=== PATIENT | male | born 1960 | race Two or more races ===

== ENCOUNTER 2023-03-15 20:55 | Emergency (ER) | payer SELFPAY ==
[~2023-03-15] VITALS: Ht 177.8 cm; Wt 82.0 kg
[2023-03-15 21:53] LABS: *AMPHETAMINES SCREEN URINE NEGATIVE (NEGATIVE); *BARBITURATES SCREEN URINE NEGATIVE (NEGATIVE); *BENZODIAZEPINES SCREEN URINE NEGATIVE (NEGATIVE); *COCAINE SCREEN URINE NEGATIVE (NEGATIVE); CANNABINOID URINE SCREEN NEGATIVE (NEGATIVE); METHADONE URINE SCREEN NEGATIVE (NEGATIVE); OPIATES URINE SCREEN NEGATIVE (NEGATIVE); PHENCYCLIDINE URINE SCREEN NEGATIVE (NEGATIVE)
[2023-03-15 22:05] LABS: BASOPHILS % 0.7 % (0.0-2.0); EOSINOPHILS % 2.1 % (0.0-5.0); HEMATOCRIT. 45.9 % (42.0-52.0); HEMOGLOBIN. 15.6 g/dL (14.0-18.0); LYMPHOCYTES % 42.8 % (20.0-50.0); MEAN CORPUSCULAR HEMOGLOBIN 31.5 pg (28.0-32.0); MEAN CORPUSCULAR VOLUME 92.6 fL (80.0-94.0); MEAN PLATELET VOLUME 6.5 fl (7.4-10.4); MONOCYTES % 7.4 % (2.0-8.0); PLATELET 347 x1000/uL (130-400); RED BLOOD CELL COUNT 4.96 mill/uL (4.7-6.1)
[2023-03-15 22:22] LABS: CHLORIDE 105 mEq/L (98-107)
[2023-03-15 22:31] LABS: ETHANOL BLOOD 272 mg/dL
[2023-03-15 23:50] VITALS: BP 125/80
== END 2023-03-15 23:57 | disposition home or self-care (01) ==
LOC: ER 20:55
DX: T51.0X1A Toxic effect of ethanol, accidental (unintentional), initial encounter (principal); X58.XXXA Exposure to other specified factors, initial encounter; Z86.73 Personal history of transient ischemic attack (TIA), and cerebral infarction without residual deficits; I10 Essential (primary) hypertension
CPT/HCPCS: 36415; 80053; 80305; 80320; 85025; 93005; 99284; Z7610; G0480

== ENCOUNTER 2023-05-17 23:34 | Emergency (ER) | payer OTHER ==
[2023-05-18 02:56] LABS: BASOPHILS % 1.2 % (0.0-2.0); EOSINOPHILS % 2.2 % (0.0-5.0); HEMOGLOBIN. 15.6 g/dL (14.0-18.0); LYMPHOCYTES % 44.8 % (20.0-50.0); MEAN CORPUSCULAR HEMOGLOBIN 31.4 pg (28.0-32.0); MEAN CORPUSCULAR HGB CONC 34.7 g/dL (31.0-37.0); MEAN CORPUSCULAR VOLUME 90.7 fL (80.0-94.0); MEAN PLATELET VOLUME 6.4 fl (7.4-10.4); MONOCYTES % 7.3 % (2.0-8.0); NEUTROPHILS % 44.5 % (40.0-76.0); PLATELET 425 x1000/uL (130-400); RED BLOOD CELL COUNT 4.96 mill/uL (4.7-6.1); RED CELL DISTRIBUTION WIDTH 15.8 % (11.6-14.6); WHITE BLOOD COUNT 8.3 x1000/uL (4.5-11.0)
[2023-05-18 03:09] LABS: *AMPHETAMINES SCREEN URINE NEGATIVE (NEGATIVE); *BARBITURATES SCREEN URINE NEGATIVE (NEGATIVE); *BENZODIAZEPINES SCREEN URINE NEGATIVE (NEGATIVE); *COCAINE SCREEN URINE NEGATIVE (NEGATIVE); CANNABINOID URINE SCREEN NEGATIVE (NEGATIVE); ECSTASY MDMA SCREEN URINE NEGATIVE (NEGATIVE); METHADONE URINE SCREEN NEGATIVE (NEGATIVE); OPIATES URINE SCREEN PRESUMTIVE POSITIVE (NEGATIVE); PHENCYCLIDINE URINE SCREEN NEGATIVE (NEGATIVE)
[2023-05-18 03:15] LABS: CHLORIDE 103 mEq/L (98-107); INDEX HEMOLYSI 1 (1-3); INDEX ICTERIC 1 (1-4); INDEX LIPEMIC 1 (1-3); POTASSIUM 4.1 mEq/L (3.5-5.1); SODIUM 134 mEq/L (136-145)
[2023-05-18 03:23] LABS: ALBUMIN 3.4 g/dL (3.4-5.0); BILIRUBIN TOTAL 0.2 mg/dL (0.1-1.0); CARBON DIOXIDE 23 mEq/L (21-32); CREATININE 0.8 mg/dL (0.6-1.3); GLUCOSE 108 mg/dL (70-105); PROTEIN TOTAL 8.3 g/dL (6.0-8.3); UREA NITROGEN BLOOD 5 mg/dL (7-21)
[2023-05-18 03:24] LABS: ACETAMINOPHEN <2 ug/mL ug/mL (10-30); ALANINE AMINOTRANSFERASE 36 IU/L (13-61); ASPARTATE AMINOTRANSFERASE 33 IU/L (15-37); ETHANOL BLOOD 249 mg/dL (-10)
[2023-05-18] MEDS: TAMSULOSIN HCL 0.4MG SR CAPSULE PO SCH ×2 (07:00→09:00)
[2023-05-18] MEDS: SERTRALINE HCL 50MG TABLET PO SCH ×3 (07:00→17:00)
[2023-05-18] MEDS: LISINOPRIL 10MG TABLET PO SCH ×2 (07:00→09:00)
[2023-05-18] MEDS: HYDROCHLOROTHIAZIDE 12.5MG CAPSULE PO SCH ×2 (07:00→09:00)
[2023-05-18] MEDS: TRAZODONE HCL 50MG TABLET PO SCH (21:55)
[2023-05-19] MEDS: SERTRALINE HCL 50MG TABLET PO SCH ×2 (09:00→17:00)
[2023-05-19] MEDS: LISINOPRIL 10MG TABLET PO SCH (09:00)
[2023-05-19] MEDS: TAMSULOSIN HCL 0.4MG SR CAPSULE PO SCH (09:00)
[2023-05-19] MEDS: HYDROCHLOROTHIAZIDE 12.5MG CAPSULE PO SCH (12:59)
[2023-05-19] MEDS: TRAZODONE HCL 50MG TABLET PO SCH (21:55)
[2023-05-19] MEDS ORDERED: IBUPROFEN 600MG TABLET PO ONE (22:15)
[2023-05-20] MEDS: HYDROCHLOROTHIAZIDE 12.5MG CAPSULE PO SCH (09:00)
[2023-05-20] MEDS: SERTRALINE HCL 50MG TABLET PO SCH ×2 (09:00→17:49)
[2023-05-20] MEDS: TAMSULOSIN HCL 0.4MG SR CAPSULE PO SCH (09:00)
[2023-05-20] MEDS: LISINOPRIL 10MG TABLET PO SCH (09:00)
[2023-05-20] MEDS: TRAZODONE HCL 50MG TABLET PO SCH (21:30)
[2023-05-21 06:46] VITALS: BP 142/76; PULSE 66; RESP 18; TEMP 98.4
== END 2023-05-21 09:20 | disposition home or self-care (01) ==
LOC: ER 23:34
DX: R45.851 Suicidal ideations (principal); I10 Essential (primary) hypertension; R51.9 Headache, unspecified; Z20.822 Contact with and (suspected) exposure to COVID-19; Z86.73 Personal history of transient ischemic attack (TIA), and cerebral infarction without residual deficits
CPT/HCPCS: 80053; 80305; 80307; 80329; 80320; 80162; 85025; 36415; 93005; 99285; 87426; 70450; C9803; G0480

== ENCOUNTER 2023-08-14 03:02 | Emergency (ER) | payer OTHER ==
[~2023-08-14] VITALS: Ht 172.7 cm; Wt 87.8 kg
[2023-08-14 03:05] VITALS: O2SAT 99
[2023-08-14] MEDS ORDERED: ASPIRIN 81MG TABLET PO ONE (03:15)
[2023-08-14 03:26] LABS: BASOPHILS % 0.9 % (0.0-2.0); EOSINOPHILS % 2.1 % (0.0-5.0); HEMATOCRIT. 43.7 % (42.0-52.0); LYMPHOCYTES % 49.4 % (20.0-50.0); MEAN CORPUSCULAR HEMOGLOBIN 31.5 pg (28.0-32.0); MEAN CORPUSCULAR HGB CONC 34.4 g/dL (31.0-37.0); MEAN CORPUSCULAR VOLUME 91.6 fL (80.0-94.0); MEAN PLATELET VOLUME 7.1 fl (7.4-10.4); MONOCYTES % 8.4 % (2.0-8.0); NEUTROPHILS % 39.2 % (40.0-76.0); PLATELET 363 x1000/uL (130-400); RED BLOOD CELL COUNT 4.77 mill/uL (4.7-6.1); WHITE BLOOD COUNT 10.3 x1000/uL (4.5-11.0)
[2023-08-14 03:30] LABS: CHLORIDE 104 mEq/L (98-107); INDEX HEMOLYSI 1 (1-3); INDEX ICTERIC 1 (1-4); INDEX LIPEMIC 1 (1-3); POTASSIUM 3.2 mEq/L (3.5-5.1); SODIUM 138 mEq/L (136-145)
[2023-08-14 03:46] LABS: ALANINE AMINOTRANSFERASE 21 IU/L (13-61); ASPARTATE AMINOTRANSFERASE 18 IU/L (15-37); BILIRUBIN TOTAL 0.3 mg/dL (0.1-1.0); CALCIUM 8.7 mg/dL (8.5-10.1); CARBON DIOXIDE 26 mEq/L (21-32); CREATININE 1.1 mg/dL (0.6-1.3); ETHANOL BLOOD < 10 mg/dL (<10); GLUCOSE 119 mg/dL (70-105); PROTEIN TOTAL 7.3 g/dL (6.0-8.3); TROPONIN I HIGH SENSITIVITY 31 ng/L (<78); UREA NITROGEN BLOOD 9 mg/dL (7-21)
[2023-08-14] MEDS ORDERED: ONDANSETRON HCL 4MG/2ML INJ IV NR (04:00)
[2023-08-14] MEDS ORDERED: MORPHINE SULFATE 4 MG/ML CPJ (NOT FOR IM USE) IV NR (04:45)
[2023-08-14 05:14] LABS: CLARITY URINE CLEAR (CLEAR); COLOR URINE YELLOW (YELLOW); GLUCOSE URINE NEGATIVE (NEGATIVE); KETONES URINE NEGATIVE (NEGATIVE); LEUKOCYTE ESTERASE URINE TRACE (NEGATIVE); NITRITE URINE POSITIVE (NEGATIVE); OCCULT BLOOD URINE 1+ (NEGATIVE); PROTEIN URINE NEGATIVE (NEGATIVE); SPECIFIC GRAVITY URINE 1.062 (1.005-1.030)
[2023-08-14 05:27] LABS: *AMPHETAMINES SCREEN URINE NEGATIVE (NEGATIVE); *BARBITURATES SCREEN URINE NEGATIVE (NEGATIVE); *BENZODIAZEPINES SCREEN URINE NEGATIVE (NEGATIVE); *COCAINE SCREEN URINE NEGATIVE (NEGATIVE); CANNABINOID URINE SCREEN NEGATIVE (NEGATIVE); ECSTASY MDMA SCREEN URINE NEGATIVE (NEGATIVE); OPIATES URINE SCREEN NEGATIVE (NEGATIVE); PHENCYCLIDINE URINE SCREEN NEGATIVE (NEGATIVE)
[2023-08-14] MEDS ORDERED: ASPIRIN 300MG SUPP PR ONE (06:15)
[2023-08-14 06:38] VITALS: BP 133/73; PULSE 60; RESP 14; TEMP 98
[2023-08-14 07:32] LABS: SQUAMOUS EPITHELIAL CELL URINE FEW /lpf (RARE/1+)
[2023-08-14 07:38] LABS: BACTERIA URINE 3+; RBC URINE 0-2 /hpf (0-2)
== END 2023-08-14 06:47 | disposition short-term general hospital (02) ==
LOC: ER 03:05
DX: I63.9 Cerebral infarction, unspecified (principal); R07.89 Other chest pain; R41.82 Altered mental status, unspecified; I48.91 Unspecified atrial fibrillation; I49.9 Cardiac arrhythmia, unspecified; Z86.73 Personal history of transient ischemic attack (TIA), and cerebral infarction without residual deficits; Z20.822 Contact with and (suspected) exposure to COVID-19
CPT/HCPCS: 80053; 80305; 81003; 80320; 82962; 85025; 84484; 36415; 71045; 70496; 70450; 96374; 96375; 99285; 87426; Q9967; Z7610 ×2; J2405; J2270; C9803; G0480

== ENCOUNTER 2025-01-24 18:26 | Inpatient (IN) | payer OTHER ==
[~2025-01-24] VITALS: Ht 182.9 cm; Wt 89.4 kg
[2025-01-24] MEDS: IOHEXOL-350 100 ML BOTTLE ONE ×2 (20:14→20:15)
[2025-01-24 20:25] LABS: CLARITY URINE CLEAR (CLEAR); COLOR URINE YELLOW (YELLOW); GLUCOSE URINE NEGATIVE (NEGATIVE); KETONES URINE NEGATIVE (NEGATIVE); LEUKOCYTE ESTERASE URINE NEGATIVE (NEGATIVE); NITRITE URINE NEGATIVE (NEGATIVE); OCCULT BLOOD URINE 2+ (NEGATIVE); PROTEIN URINE NEGATIVE (NEGATIVE); SPECIFIC GRAVITY URINE 1.091 (1.005-1.030)
[2025-01-24 20:35] LABS: BASOPHILS % 1.2 % (0.0-2.0); EOSINOPHILS % 2.2 % (0.0-5.0); HEMATOCRIT. 43.9 % (42.0-52.0); HEMOGLOBIN. 14.4 g/dL (14.0-18.0); LYMPHOCYTES % 39.3 % (20.0-50.0); MEAN CORPUSCULAR HEMOGLOBIN 29.2 pg (28.0-32.0); MEAN CORPUSCULAR HGB CONC 32.8 g/dL (31.0-37.0); MEAN CORPUSCULAR VOLUME 89.1 fL (80.0-94.0); MEAN PLATELET VOLUME 7.3 fl (7.4-10.4); MONOCYTES % 10.5 % (2.0-8.0); NEUTROPHILS % 46.8 % (40.0-76.0); PLATELET 255 x1000/uL (130-400); RED BLOOD CELL COUNT 4.93 mill/uL (4.7-6.1); RED CELL DISTRIBUTION WIDTH 16.2 % (11.6-14.6)
[2025-01-24 20:38] LABS: *AMPHETAMINES SCREEN URINE NEGATIVE (NEGATIVE); *BARBITURATES SCREEN URINE NEGATIVE (NEGATIVE); *BENZODIAZEPINES SCREEN URINE NEGATIVE (NEGATIVE); *COCAINE SCREEN URINE NEGATIVE (NEGATIVE)
[2025-01-24 20:39] LABS: CANNABINOID URINE SCREEN NEGATIVE (NEGATIVE); ECSTASY MDMA SCREEN URINE NEGATIVE (NEGATIVE); METHADONE URINE SCREEN NEGATIVE (NEGATIVE); OPIATES URINE SCREEN NEGATIVE (NEGATIVE); PHENCYCLIDINE URINE SCREEN NEGATIVE (NEGATIVE)
[2025-01-24 20:43] LABS: CHLORIDE 103 mEq/L (98-107); SODIUM 141 mEq/L (136-145)
[2025-01-24 20:44] LABS: CALCIUM 9.2 mg/dL (8.7-10.4); CARBON DIOXIDE 29 mEq/L (21-32)
[2025-01-24 20:45] LABS: PROTHROMBIN TIME 11.1 sec (9.6-11.0)
[2025-01-24 20:49] LABS: CREATININE 1.2 mg/dL (0.6-1.3); GLUCOSE 85 mg/dL (70-105); TROPONIN I HIGH SENSITIVITY 33 ng/L (3.0-53); UREA NITROGEN BLOOD 9 mg/dL (9-23)
[2025-01-24 20:50] LABS: ETHANOL BLOOD < 10 mg/dL (<10)
[2025-01-24 21:02] LABS: BACTERIA URINE NONE SEEN; SQUAMOUS EPITHELIAL CELL URINE RARE /lpf (RARE/1+); WBC URINE 0-2 /hpf (0-2)
[2025-01-24 21:16] LABS: TROPONIN I HIGH SENSITIVITY 34 ng/L (3.0-53)
[2025-01-24] MEDS: ASPIRIN 325MG EC TABLET PO NR (21:22)
[2025-01-24] MEDS: MORPHINE SULFATE 4 MG/ML INJ (FOR IV/IM USE) IV NR (21:33)
[2025-01-24] MEDS ORDERED: ACETAMINOPHEN 325MG TABLET PO PRN ×2 (23:45)
[2025-01-24] MEDS ORDERED: ONDANSETRON HCL 4MG/2ML INJ IV PRN (23:45)
[2025-01-24] MEDS ORDERED: GUAIFENESIN 200MG/10ML SUGAR FREE UDC PO PRN (23:45)
[2025-01-24] MEDS ORDERED: DOCUSATE SODIUM 100MG CAPSULE PO PRN (23:45)
[2025-01-24] MEDS ORDERED: DIPHENHYDRAMINE 50MG/ML VIAL IV PRN (23:45)
[2025-01-24] MEDS ORDERED: MAGNESIUM/ALUMINUM HYDROXIDE/SIMETHICONE 30ML UDC PO PRN (23:45)
[2025-01-24] MEDS ORDERED: IPRATROPIUM/ALBUTEROL 0.5-3(2.5)MG/3ML NEB HHN PRN (23:45)
[2025-01-24] MEDS ORDERED: KETOROLAC 15MG/ML VIAL IV PRN (23:45)
[2025-01-25] VITALS (7 sets, daily range): BP systolic 130–200; BP diastolic 57–102; PULSE 54–70; RESP 18–22; TEMP 35.8–36.9; O2SAT 97–100
[2025-01-25] MEDS: HYDRALAZINE 20MG/ML VIAL IV PRN (00:12)
[2025-01-25] MEDS: ATORVASTATIN CALCIUM 40MG TABLET PO STA (01:10)
[2025-01-25] MEDS: CLOPIDOGREL 75MG TABLET PO SCH (01:10)
[2025-01-25] MEDS ORDERED: HYDRALAZINE 20MG/ML VIAL IV PRN (06:30)
[2025-01-25 08:17] LABS: CARBON DIOXIDE 25 mEq/L (21-32); CHLORIDE 108 mEq/L (98-107); POTASSIUM 4.1 mEq/L (3.5-5.1); SODIUM 141 mEq/L (136-145)
[2025-01-25 08:18] LABS: CALCIUM 9.7 mg/dL (8.7-10.4)
[2025-01-25 08:22] LABS: CREATININE 0.9 mg/dL (0.6-1.3); GLUCOSE 120 mg/dL (70-105)
[2025-01-25 08:23] LABS: LDL CHOLESTEROL 88 mg/dL (5-100); TRIGLYCERIDE 95 mg/dL (0-150); TROPONIN I HIGH SENSITIVITY 46 ng/L (3.0-53); UREA NITROGEN BLOOD 8 mg/dL (9-23)
[2025-01-25 08:24] LABS: CHOLESTEROL 126 mg/dL (<200); CREATINE KINASE 504 IU/L (46-171); HDL CHOLESTEROL 24 mg/dL (>55)
[2025-01-25 08:25] LABS: PHOSPHORUS 3.2 mg/dL (2.5-4.9)
[2025-01-25 08:26] LABS: THYROID STIMULATING HORMONE 2.03 uIU/mL (0.55-4.78)
[2025-01-25 08:36] LABS: BASOPHILS % 0.5 % (0.0-2.0); EOSINOPHILS % 2.7 % (0.0-5.0); HEMATOCRIT. 43.8 % (42.0-52.0); HEMOGLOBIN. 14.4 g/dL (14.0-18.0); LYMPHOCYTES % 38.4 % (20.0-50.0); MEAN CORPUSCULAR HEMOGLOBIN 28.9 pg (28.0-32.0); MEAN CORPUSCULAR HGB CONC 32.9 g/dL (31.0-37.0); MEAN CORPUSCULAR VOLUME 87.8 fL (80.0-94.0); MONOCYTES % 8.8 % (2.0-8.0); NEUTROPHILS % 49.6 % (40.0-76.0); PLATELET 260 x1000/uL (130-400); RED BLOOD CELL COUNT 4.99 mill/uL (4.7-6.1); RED CELL DISTRIBUTION WIDTH 16.1 % (11.6-14.6); WHITE BLOOD COUNT 7.4 x1000/uL (4.5-11.0)
[2025-01-25] MEDS ORDERED: LISINOPRIL 10MG TABLET PO SCH (09:00)
[2025-01-25] MEDS: MAGNESIUM 2 G PREMIX 50 ML IV NR (10:04)
[2025-01-25] MEDS: ASPIRIN 81MG TABLET PO SCH (13:28)
[2025-01-25] MEDS: ENOXAPARIN 100MG/ML SYR SUBCUT SCH (17:35)
[2025-01-25] MEDS ORDERED: ATORVASTATIN CALCIUM 40MG TABLET PO SCH (21:00)
[2025-01-25] MEDS: FAMOTIDINE 20MG TABLET PO SCH (21:17)
[2025-01-25] MEDS: ATORVASTATIN CALCIUM 40MG TABLET PO SCH (21:17)
[2025-01-25 22:01] LABS: CREATINE KINASE 487 IU/L (46-171); TROPONIN I HIGH SENSITIVITY 43 ng/L (3.0-53)
[2025-01-26] VITALS: BP 160/80; PULSE 66; RESP 20; TEMP 36.1; O2SAT 97
[2025-01-26 04:00] VITALS: BP 129/66; PULSE 76; RESP 19; TEMP 36.3; O2SAT 98
[2025-01-26 08:00] VITALS: BP 138/69; PULSE 78; RESP 18; TEMP 36.6; O2SAT 100
[2025-01-26 09:27] LABS: HEMOGLOBIN 14.7 g/dL (14.0-18.0); MEAN CORPUSCULAR HEMOGLOBIN 28.8 pg (28.0-32.0); MEAN CORPUSCULAR HGB CONC 32.6 g/dL (31.0-37.0); MEAN CORPUSCULAR VOLUME 88.2 fL (80.0-94.0); PLATELET 273 x1000/uL (130-400); RED CELL DISTRIBUTION WIDTH 15.9 % (11.6-14.6); WHITE BLOOD COUNT 6.3 x1000/uL (4.5-11.0)
[2025-01-26 09:36] LABS: CHLORIDE 105 mEq/L (98-107); POTASSIUM 4.2 mEq/L (3.5-5.1); SODIUM 140 mEq/L (136-145)
[2025-01-26 09:37] LABS: CARBON DIOXIDE 25 mEq/L (21-32)
[2025-01-26 09:38] LABS: CALCIUM 9.7 mg/dL (8.7-10.4)
[2025-01-26 09:42] LABS: CREATININE 0.9 mg/dL (0.6-1.3); GLUCOSE 98 mg/dL (70-105)
[2025-01-26 09:43] LABS: UREA NITROGEN BLOOD 8 mg/dL (9-23)
[2025-01-26 12:00] VITALS: BP 158/85; PULSE 81; RESP 18; TEMP 36.6; O2SAT 81
[2025-01-26 15:34] VITALS: BP 147/95; PULSE 80; TEMP 97.9; O2SAT 99
[2025-01-26 16:00] VITALS: BP 147/95; PULSE 80; RESP 18; TEMP 36.6; O2SAT 99
== END 2025-01-26 17:25 | disposition short-term general hospital (02) | DRG 66 ==
LOC: ER 18:26 → 6WST 21:47 → EDBEDREQ 21:50
PROVIDERS: ADMIT Hospitalist; ATTEND Hospitalist
DX: I63.9 Cerebral infarction, unspecified (principal); E78.5 Hyperlipidemia, unspecified; I48.0 Paroxysmal atrial fibrillation; R29.701 NIHSS score 1; I10 Essential (primary) hypertension; G93.89 Other specified disorders of brain; E83.42 Hypomagnesemia; Z79.02 Long term (current) use of antithrombotics/antiplatelets; Z86.73 Personal history of transient ischemic attack (TIA), and cerebral infarction without residual deficits; Z79.899 Other long term (current) drug therapy
CPT/HCPCS: 36415; 70496; 70498; 70551; 71045; 71275; 74174; 80048; 80061; 80305; 80320; 81003; 82550; 83036; 83735; 84100; 84443; 84484; 85025; 85027; 93005; 99285; J0360; J1650; J2270; J3475; Q9967; G0480